=== PATIENT | male | born 1990 | race Caucasian/White ===

== ENCOUNTER 2018-10-10 06:18 | Emergency (ER) | payer BC ==
[~2018-10-10] VITALS: Ht 175.3 cm; Wt 56.7 kg
== END 2018-10-10 10:32 | disposition home or self-care (01) ==
LOC: ER 06:18
DX: J11.1 Influenza due to unidentified influenza virus with other respiratory manifestations (principal)

== ENCOUNTER 2018-10-11 09:28 | Emergency (ER) | payer BC ==
[~2018-10-11] VITALS: Ht 175.3 cm; Wt 56.7 kg
== END 2018-10-11 13:54 | disposition home or self-care (01) ==
LOC: ER 09:28
DX: S00.83XA Contusion of other part of head, initial encounter (principal); R55 Syncope and collapse; W18.09XA Striking against other object with subsequent fall, initial encounter; Y93.89 Activity, other specified; Y92.018 Other place in single-family (private) house as the place of occurrence of the external cause; Y99.8 Other external cause status